=== PATIENT | male | born 1955 | race Caucasian/White ===

== ENCOUNTER 2024-09-11 10:31 | Emergency (ER) | payer OTHER ==
[2024-09-11 10:56] LABS: Absolute Eosinophils 0.3 K/uL (0-0.5); Absolute Lymphocytes (CBC) 1.1 K/uL (0.7-4.9); Absolute Monocytes 0.3 K/uL (0.1-1.3); Basophils % 0.7 % (0-1.3); Eosinophils % 5.9 % (0-4.4); Hematocrit 34.6 % (39.6-49.0); Lymphocytes % 24.2 % (15.3-44.8); MCH 31.7 pg (27.0-35.0); MCHC 34.5 g/dL (32.0-36.0); MCV 91.8 fL (80-100); MPV 8.5 fL (7.6-11.3); Monocytes % 6.9 % (3.3-12.3); Neutrophils % 62.3 % (41.7-73.7); Nucleated Red Blood Cells % 0.1 % (0-0); Platelets 165 thou/uL (152-406); RBC Red Blood Cell Count 3.78 M/uL (4.33-5.43); Red Cell Distribution Width 13.9 % (12.1-15.2)
[2024-09-11 11:05] LABS: PT Prothrombin Time 12.3 SECONDS (10-13.0); PTT, Activated Partial Thromb 26.4 SECONDS (27.2-37.4); Protime INR 1.08
[2024-09-11 11:23] LABS: ALT/SGPT 51 U/L (16-61); AST/SGOT 15 U/L (15-37); Albumin 3.3 g/dL (3.4-5.0); Albumin/Globulin Ratio 1.1 (1.1-1.8); Alkaline Phosphatase 33 U/L (45-117); Anion Gap 11.7 mEq/L (5.0-15.0); BUN Blood Urea Nitrogen 23 mg/dL (7-18); Bicarbonate 25 mEq/L (21-32); Bilirubin Total 0.4 mg/dL (0.2-1.0); Globulin 2.9 g/dL (2.3-3.5); Glomerular Filtration Rate 95 ml/min (=/>90); Glucose Level 206 mg/dL (74-106); Magnesium 1.7 mg/dL (1.6-2.4); Potassium 4.7 mEq/L (3.5-5.1); Protein, Total 6.2 g/dL (6.4-8.2); Sodium Level 140 mEq/L (136-145)
--- NOTE | 2024-09-11 11:26 | RAD REPORT ---
EXAM: CT brain without contrast HISTORY: head injury;Syncope COMPARISON: None TECHNIQUE: Multiple contiguous axial images were obtained and a CT of the brain without contrast. Sag ittal and coronal reformats were performed. One or more of the following dose reduction techniques were used: Automated exposure control, adjust ment of the mA and/or kV according to patient size, and/or iterative reconstruction. FINDINGS: No evidence of hydrocephalus, intracranial hemorrhage, or extra-axial fluid collection. The brain is normal in morphology. No evidence of midline shift or areas of brain edema. The calvarium is intact. Mild mucosal thickening of the paranasal sinuses is present. Vertebral ather osclerosis. IMPRESSION: No evidence of acute intracranial abnormality.
[2024-09-11 11:36] LABS: Bilirubin Direct < 0.2 mg/dL (0-0.2); Bilirubin Indirect, Calculated 0.2 mg/dL (0.2-0.8); Troponin High Sensitivity < 3.0 pg/mL (<58.9)
--- NOTE | 2024-09-11 11:36 | RAD REPORT ---
EXAMINATION: ONE VIEW CHEST XR CLINICAL INDICATION: syncope TECHNIQUE: Frontal chest projection is submitted. Examination is limited by patient positioning and t echnique. COMPARISON: No prior exam. FINDINGS: The lungs are well inflated and clear. The heart is normal in size. No displaced fractures identified . IMPRESSION: No acute intrathoracic abnormalities.
--- NOTE | 2024-09-11 11:49 | EDPHYS ---
Physician Documentation [facility] Name: Sebastián Cummins Age: 68 yrs Sex: Male : 1955 Arrival Date: 09/11/2024 Time: 10:31 Bed 7 Private MD: ED Physician Bob Patricia HPI: 09/11 10:51 This 68 yrs old Male presents to ER via EMS with complaints of Syncope. rn 10:51 The patient has experienced syncope. Onset: The symptoms/episode began/occurred just rn prior to arrival. Duration: The patient has had multiple episodes. Associated injury: The patient did not suffer any apparent associated injury. Patient was at [employer], standing, felt lightheaded and had syncopal episode. Woke up briefly then when they tried to stand him up passed out again. No injury or pain. Family member does report it looks like he hit the left side of his head. No history of seizures. No preceding chest pain or shortness of breath. Patient reports drinks a gallon of tea a day but not much water. No shortness of breath or cough. No abdominal pain or vomiting or diarrhea. No blood in stool. No changes in medication recently. Glucose over 100 per EMS. Patient completely back to baseline and without complaints at this time. EMS reported positive orthostatic vital signs. Given IV fluids only and symptoms have resolved.. Historical: - Allergies: 10:40 No Known Allergies; me1 - PMHx: 10:40 Diabetes mellitus; Hypercholesterolemia; me1 - PSHx: 10:40 None; me1 - Immunization history:: Adult Immunizations up to date. - Infectious Disease History:: Denies. - Social history:: Smoking status: Patient denies any tobacco usage or history of. - Family history:: not pertinent. - Hospitalizations: : No recent hospitalization is reported. ROS: 10:51 Constitutional: Negative for fever, chills, and weight loss, Cardiovascular: Negative rn for chest pain, palpitations, and edema, Respiratory: Negative for shortness of breath, cough, wheezing, and pleuritic chest pain, Abdomen/GI: Negative for abdominal pain, nausea, vomiting, diarrhea, and constipation, MS/Extremity: Negative for injury and deformity, Skin: Negative for injury, rash, and discoloration, Neuro: Negative for headache, weakness, numbness, tingling, and seizure, Exam: 10:51 Constitutional: This is a well developed, well nourished patient who is awake, alert, rn and in no acute distress. Head/Face: Small contusion left scalp. No open wound or hematoma ENT: Dry mucous membranes Neck: No midline cervical tenderness. Chest/axilla: No rib tenderness or crepitus Cardiovascular: Regular rate and rhythm. No pulse deficits. Respiratory: No increased work of breathing, no retractions or nasal flaring. Abdomen/GI: Soft, nontender Back: No spinal tenderness or pain MS/ Extremity: Pulses equal, no cyanosis. Neurovascular intact. Full, normal range of motion. Equal circumference. Neuro: Awake and alert, GCS 15, oriented to person, place, time, and situation. Cranial nerves II-XII grossly intact. Motor strength 5/5 in all extremities. Sensory grossly intact. Cerebellar exam normal. 11:35 ECG was reviewed by the Attending Physician. rn Vital Signs: 10:37 BP 132 / 68; Pulse 69; Resp 18; Temp 98.1; Pulse Ox 100% ; Weight 71.21 kg; Height 5 me1 ft. 9 in. ; Pain 0/10; 11:00 BP 125 / 71; Pulse 68; Resp 17; Pulse Ox 100% ; me1 11:00 BP 109 / 72; Pulse 71; Resp 12; Temp 98.2; Pulse Ox 100% ; me1 10:37 Body Mass Index 23.18 (71.21 kg, 175.26 cm) me1 10:37 Pain Scale: Adult me1 MDM: 10:35 Medical Screening Exam initiated rn 11:46 Differential Diagnosis: cardiac arrhythmia, idiopathic syncope, vasovagal episode, rn Volume depletion, orthostatic hypotension, dehydration. Data reviewed: vital signs, nurses notes, lab test result(s), EKG, radiologic studies, CT scan, plain films, and as a result, I will discharge patient. Counseling: I had a detailed discussion with the patient and/or guardian regarding the historical points, exam findings, and any diagnostic results supporting the discharge/admit diagnosis, lab results, radiology results, the need for outpatient follow up, to return to the emergency department if symptoms worsen or persist or if there are any questions or concerns that arise at home. Response to treatment: the patient's symptoms have resolved after treatment, the patient's condition has returned to base line, the patient is now symptom free, and as a result, I will discharge patient. Special discussion: I discussed with the patient/guardian in detail that at this point there is no indication for admission to the hospital. It is understood, however, that if the symptoms persist or worsen the patient needs to return immediately for re-evaluation. Based on the history and exam findings, there is no indication for further emergent testing or inpatient evaluation. I discussed with the patient/guardian the need to see the primary care provider for further evaluation of the symptoms. ED course: No acute findings on workup today. Patient had returned to baseline prior to arrival. Patient was orthostatic and back to baseline with fluids only. Will discharge home with return precautions. Advised to drink more water. I have personally reviewed all of the results, including but not limited to blood tests and imaging deemed necessary to safely discharge this patient at this time. All results given to and printed out for patient. I personally went over all the results with the patient and answered all questions. Patient will follow-up with PCP and or specialist as discussed. Return precautions given and understood.. 09/11 10:36 Order name: Basic Metabolic Panel; Complete Time: 09/11 10:36 Order name: CBC with Diff; Complete Time: 09/11 10:36 Order name: Hepatic Function; Complete Time: 09/11 10:36 Order name: Magnesium; Complete Time: 09/11 10:36 Order name: Protime (+inr); Complete Time: 09/11 10:36 Order name: Ptt, Activated; Complete Time: 09/11 10:36 Order name: Troponin High Sensitivity; Complete Time: 09/11 10:36 Order name: CT Head Brain wo Cont; Complete Time: 09/11 10:36 Order name: Chest Single View XRAY; Complete Time: 09/11 10:36 Order name: Cardiac monitoring; Complete Time: 09/11 10:36 Order name: EKG - Nurse/Tech; Complete Time: :09/11 10:36 Order name: IV Saline Lock; Complete Time: 10:45 09/11 10:36 Order name: Labs collected and sent; Complete Time: 10:09/11 10:36 Order name: O2 Per Protocol; Complete Time: 10:45 rn 09/11 10:36 Order name: O2 Sat Monitoring; Complete Time: 10:45 rn EC:35 Rate is 68 beats/min. Rhythm is regular. Left axis deviation noted. QRS is positive in rn lead I and negative in lead aVF. PA interval is normal. QRS interval is normal. QT interval is normal. No Q waves. T waves are Normal. No ST changes noted. Clinical impression: NSR w/ Non-specific ST/T Changes. Interpreted by me. Reviewed by me. Administered Medications: 10:51 Drug: NS 0.9% IV 1000 ml IV at 1000 ml once; to be given as a bolus over 60 minutes me1 Route: IV; Rate: 1000 ml; Site: right antecubital; 11:59 Follow up: Response: No adverse reaction; IV Status: Completed infusion; IV Intake: me1 1000ml Disposition Summary: 09/11/24 11:48 Discharge Ordered Notes: Location: Home rn Problem: new rn Symptoms: have improved rn Condition: Stable rn Diagnosis - Syncope rn - Dehydration rn Followup: rn - With: Private Physician - When: As needed - Reason: Recheck today's complaints, Re-evaluation by your physician Discharge Instructions: - Discharge Summary Sheet rn - Dehydration, Adult rn - Orthostatic Hypotension rn - Syncope rn Forms: - Medication Reconciliation Form 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 EDMS EDMS 10:37 10:37 Chest Single View+RAD.RAD.BRZ ordered. EDMS EDMS
--- NOTE | 2024-09-11 11:49 | ER ---
Nurse's Notes [facility] Name: Sebastián Cummins Age: 68 yrs Sex: Male : 1955 Arrival Date: 09/11/2024 Time: 10:31 Bed 7 Private MD: Diagnosis: Syncope;Dehydration Presentation: 09/11 10:37 Chief complaint: EMS states: toned out for syncopal episode. Patient was in mandaen, got me1 dizzy and passed out with +LOC. ST to left elbow. Patient did hit his head, no blood thinners. + orthostatics per EMS. 18 g RAC, NS infusing. BGL 183. Coronavirus screen: Vaccine status: Patient reports receiving the 2nd dose of the covid vaccine. Ebola Screen: No symptoms or risks identified at this time. Initial Sepsis Screen: Does the patient meet any 2 criteria? No. Patient's initial sepsis screen is negative. Does the patient have a suspected source of infection? No. Patient's initial sepsis screen is negative. Risk Assessment: Do you want to hurt yourself or someone else? Patient reports no desire to harm self or others. Onset of symptoms was September 11, 2024 at 10:00. 10:37 Method Of Arrival: EMS: [facility] me1 10:37 Acuity: FAHAD 3 me1 Triage Assessment: 10:40 General: Appears in no apparent distress. Behavior is calm, cooperative, appropriate me1 for age, Reports became dizzy and then passed out. Pain: Denies pain. EENT: No signs and/or symptoms were reported regarding the EENT system. Neuro: Level of Consciousness is awake, alert, obeys commands, Oriented to person, place, time, situation, Appropriate for age Reports a syncopal episode. Cardiovascular: Patient's skin is warm and dry. Respiratory: Airway is patent Respiratory effort is even, unlabored, Respiratory pattern is regular, symmetrical. GI: No signs and/or symptoms were reported involving the gastrointestinal system. : No signs and/or symptoms were reported regarding the genitourinary system. Derm: Skin is intact, with poor turgor Skin is pink, warm \T\ dry. Wound noted left elbow Wound is skin tear. Musculoskeletal: No signs and/or symptoms reported regarding the musculoskeletal system. Injury Description: syncope with fall. Hit left side of his head and has a skin tear to left elbow. Historical: - Allergies: 10:40 No Known Allergies; me1 - PMHx: 10:40 Diabetes mellitus; Hypercholesterolemia; me1 - PSHx: 10:40 None; me1 - Immunization history:: Adult Immunizations up to date. - Infectious Disease History:: Denies. - Social history:: Smoking status: Patient denies any tobacco usage or history of. - Family history:: not pertinent. - Hospitalizations: : No recent hospitalization is reported. Screenin:43 [facility] ED Fall Risk Assessment (Adult) History of falling in the last 3 months, me1 including since admission Yes- physiologic fall (2 pts) Confusion or Disorientation No (0 pts) Intoxicated or Sedated No (0 pts) Impaired Gait No (0 pts) Mobility Assist Device Used No (0 pt) Altered Elimination No (0 pt) Score/Fall Risk Level 0 - 2 = Low Risk Maintained a safe environment, Provided non-skid footwear, Hourly rounding (assess needs \T\ fall precautionary measures) done. Abuse screen: Denies threats or abuse. Nutritional screening: No deficits noted. Tuberculosis screening: No symptoms or risk factors identified. Assessment: 10:43 General: See triage assessment. Neuro: Level of Consciousness is awake, alert, obeys me1 commands, Oriented to person, place, time, situation, Appropriate for age. 10:43 Cardiovascular: Rhythm is regular. me1 Vital Signs: 10:37 BP 132 / 68; Pulse 69; Resp 18; Temp 98.1; Pulse Ox 100% ; Weight 71.21 kg; Height 5 me1 ft. 9 in. ; Pain 0/10; 11:00 BP 125 / 71; Pulse 68; Resp 17; Pulse Ox 100% ; me1 11:00 BP 109 / 72; Pulse 71; Resp 12; Temp 98.2; Pulse Ox 100% ; me1 10:37 Body Mass Index 23.18 (71.21 kg, 175.26 cm) me1 10:37 Pain Scale: Adult tx1 ED Course: 10:32 Patient arrived in ED. eb 10:35 Bob Patricia MD is Attending Physician. eb 10:37 Karin Reddy RN is Primary Nurse. me1 10:40 Triage completed. me1 10:40 Arm band placed on Patient placed in an exam room. me1 10:43 Patient has correct armband on for positive identification. Bed in low position. Call me1 light in reach. Side rails up X2. Provided Education on: POC. Verbalized understanding.. Client placed on continuous cardiac and pulse oximetry monitoring. NIBP monitoring applied. home day care provider on. Pulse ox on. NIBP on. 10:43 No provider procedures requiring assistance completed. Maintain EMS IV. Dressing me1 intact. Good blood return noted. Site clean \T\ dry. Gauge \T\ site: 18g RAC. Flushed with 10 mL NS. 10:50 Basic Metabolic Panel Sent. me1 10:50 CBC with Diff Sent. me1 10:50 Hepatic Function Sent. me1 10:50 Magnesium Sent. me1 10:50 Protime (+inr) Sent. me1 10:50 Ptt, Activated Sent. me1 10:50 Troponin High Sensitivity Sent. me1 11:03 Initial lab(s) drawn, by me, sent to lab. EKG done, by ED staff, reviewed by Bob smith1 Harshad TRIPP. 11:19 CT Head Brain wo Cont In Process Unspecified. EDMS 11:34 Chest Single View XRAY In Process Unspecified. EDMS 11:59 IV discontinued, intact, bleeding controlled, No redness/swelling at site. Pressure me1 dressing applied. Administered Medications: 10:51 Drug: NS 0.9% IV 1000 ml IV at 1000 ml once; to be given as a bolus over 60 minutes me1 Route: IV; Rate: 1000 ml; Site: right antecubital; 11:59 Follow up: Response: No adverse reaction; IV Status: Completed infusion; IV Intake: me1 1000ml Medication: 10:43 VIS not applicable for this client. me1 Intake: 11:59 IV: 1000ml; Total: 1000ml. me1 Outcome: 11:48 Discharge ordered by . rn 11:59 Discharged to home ambulatory, with family, me1 11:59 Condition: stable 11:59 Discharge instructions given to patient, family, Instructed on discharge instructions, follow up and referral plans. Demonstrated understanding of instructions, follow-up care, 11:59 Patient left the ED. me1 Signatures: Dispatcher [employer] Bob Mendez MD MD rn Botello, Elizabeth eb Eddleman, Michelle RN RN me1
[2024-09-11 12:04] VITALS: O2SAT 100
[2024-09-11 12:06] VITALS: BP 109/72; TEMP 98.2
--- NOTE | 2024-09-12 11:58 | EKG ---
Test Date: 2024-09-11 Test Time: 10:58:55 Foundation Coordinator: MEASUREMENT RESULTS: Intervals: Rate: 68 GA: 184 QRSD: 86 QT: 390 QTc: 414 [place]: P: 9 GA: 184 QRS: -38 T: -10 INTERPRETIVE STATEMENTS: Normal sinus rhythm Left axis deviation Abnormal ECG No previous ECG available for comparison Electronically Signed On 09-12-24 11:56:35 CDT by Efrain Krishna
== END 2024-09-11 11:59 | disposition home or self-care (01) ==
LOC: ER 10:31
DX: R55 Syncope and collapse (principal); E86.0 Dehydration; E11.9 Type 2 diabetes mellitus without complications; E78.00 Pure hypercholesterolemia, unspecified
CPT/HCPCS: 36415; 70450; 71045; 80048; 80076; 83735; 84484; 85025; 85610; 85730; 93005; 96360; 99285